=== PATIENT | female | born 1985 | race Caucasian/White ===

== ENCOUNTER 2020-06-10 18:57 | Emergency (ER) | payer BC ==
[~2020-06-10] VITALS: Ht 157.5 cm; Wt 59.1 kg
[2020-06-10 19:15] VITALS: BP 136/98
[2020-06-10] MEDS ORDERED: bacitracin 15gm ointment TP ONE (19:50)
[2020-06-10] MEDS ORDERED: LIDOcaine/PRILOcaine 5gm cream TP ONE (19:50)
[2020-06-10] MEDS ORDERED: HYDROcodone/acetaminophen 5mg/325mg tablet PO ONE (19:50)
[2020-06-10] MEDS ORDERED: ketorolac trometh inj. 60 MG/2 ML VIAL IM ONE (19:50)
[2020-06-10] MEDS ORDERED: acetaminophen 325mg tablet PO ONE (19:50)
[2020-06-10] MEDS ORDERED: ondansetron 4mg rapidly disintigrating tab PO ONE (19:50)
[2020-06-10] MEDS ORDERED: ONDA4TAB6 PO (20:08)
[2020-06-10] MEDS ORDERED: ACET-812 PO (20:08)
[2020-06-10] MEDS ORDERED: NEOM28OI32 TP (20:08)
[2020-06-10] MEDS ORDERED: HYDR-3965 PO (20:08)
== END 2020-06-10 20:22 | disposition home or self-care (01) ==
LOC: ER 18:57
DX: T23.201A Burn of second degree of right hand, unspecified site, initial encounter (principal); Z79.2 Long term (current) use of antibiotics; Z79.899 Other long term (current) drug therapy; X10.2XXA Contact with fats and cooking oils, initial encounter; Y93.G3 Activity, cooking and baking; Y92.89 Other specified places as the place of occurrence of the external cause; Y99.8 Other external cause status
CPT/HCPCS: 16020; 96372; 99284; J1885